=== PATIENT | male | born 1985 | race Caucasian/White ===

== ENCOUNTER 2018-05-12 04:26 | Emergency (ER) | payer BC ==
[~2018-05-12 04:26] MED LIST: FEXO-67 PO; FLUT16SP19 NS; NO ROUTINE MEDS; PANT40TA65 PO
--- NOTE | 2018-05-12 04:31 | ER Report ---
History and Physical Time Seen By MD: 04:30 HPI/ROS CHIEF COMPLAINT: Crampy epigastric pain HISTORY OF PRESENT ILLNESS: 32-year-old male presents ambulatory to the ER complaining of sharp epigastric pain. Patient was having some stomach issues and has been followed by Dr. Forrest mcarthur. He was on PPI to reduce his stomach acid. His symptoms improved but never completely resolved. He's been struggling with sinus congestion, enlarged tonsils with sore throat and some dysphagia for several weeks. Dr. Clayton suggested endoscopy and may be ENT consultation. Patient's been on non-drowsy antihistamine and Nasonex with improvement of his symptoms. He's been off his PPI for one week. REVIEW OF SYSTEMS: Respiratory: No cough, no dyspnea. Cardiovascular: No chest pain, no palpitations. Gastrointestinal: As above Musculoskeletal: No back pain. Allergies: Coded Allergies: No Known Drug Allergies (Unverified , 05/12/18) Home Meds Active Scripts Cefuroxime Axetil (CEFUROXIME) 500 Mg Tablet, 500 MG PO BID for infection, #20 TAB Prov:AR PALACIOS DO 05/12/18 Fexofenadine Hcl (MIGEL ALLERGY) 180 Mg Tablet, 180 MG PO QDAY Y for allergies , #30 TAB Prov:SAÚL CLAYTON MD 05/04/18 Fluticasone Prop 50 Mcg Ns (FLONASE 50 MCG NS) 16 Gm [place].susp, 2 SPRAYS NS QDAY, #1 BOT 3 Refills Prov:SAÚL CLAYTON MD 05/04/18 Discontinued Reported Medications [No Routine Meds] No Conflict Check 04/17/14 Past Medical/Surgical History GERD, allergic rhinitis Reviewed Nurses Notes: Yes Old Medical Records Reviewed: Yes Hx Smoking: No Smoking Status: Never Smoker Constitutional Vital Sign - Last 24 Hours 05/12/18 05/12/18 05/12/18 05/12/18 04:30 04:41 04:56 05:00 Pulse 94 87 76 Resp 16 B/P (MAP) 153/96 138/96 (110) Pulse Ox 98 98 O2 Delivery Room Air 05/12/18 05/12/18 05:26 05:30 Pulse 75 B/P (MAP) 127/84 (98) Physical Exam General Appearance: The patient is alert, has no immediate need for airway protection and no current signs of toxicity.. Vital signs stable, afebrile, pulse ox normal HEENT: Pupils equal and round no injection. TMs normal, oropharynx with moderate erythema, mild tonsillar hypertrophy, no exudate Respiratory: Chest is non tender, lungs are clear to auscultation. Cardiac: regular rate and rhythm Gastrointestinal: Abdomen is soft and non tender, no masses, bowel sounds normal. Musculoskeletal: Neck: Neck is supple and non tender., Anterior cervical chain lymphadenopathy on the right Extremities have full range of motion and are non tender. Skin: No rashes or lesions. DIFFERENTIAL DIAGNOSIS: After history and physical exam differential diagnosis was considered for abdominal pain including but not limited to appendicitis, cholecystitis, gastritis and urinary tract infection. Medical Decision Making Data Points Result Diagram: 05/12/18 0433 05/12/18 0433 Laboratory Hematology Test 05/12/18 04:33 05/12/18 05:10 Red Blood Count 5.60 M/uL (4.00-5.60) Mean Corpuscular Volume 88.8 fL (80.0-96.0) Mean Corpuscular Hemoglobin 31.7 pg (26.0-33.0) Mean Corpuscular Hemoglobin Concent 35.7 g/dL (32.0-36.0) Red Cell Distribution Width 12.6 % (11.5-14.5) Mean Platelet Volume 8.2 fL (7.2-11.1) Neutrophils (%) (Auto) 51.8 % (39.4-72.5) Lymphocytes (%) (Auto) 38.9 % (17.6-49.6) Monocytes (%) (Auto) 7.2 % (4.1-12.4) Eosinophils (%) (Auto) 1.1 % (0.4-6.7) Basophils (%) (Auto) 1.0 % (0.3-1.4) Nucleated RBC Relative Count (auto) 0.1 /100WBC Neutrophils # (Auto) 4.4 K/uL (2.0-7.4) Lymphocytes # (Auto) 3.3 K/uL (1.3-3.6) Monocytes # (Auto) 0.6 K/uL (0.3-1.0) Eosinophils # (Auto) 0.1 K/uL (0.0-0.5) Basophils # (Auto) 0.1 K/uL (0.0-0.1) Nucleated RBC Absolute Count (auto) 0.01 K/uL Sodium Level 141 mmol/L (137-145) Potassium Level 3.2 mmol/L (3.5-5.0) Chloride Level 100 mmol/L (98-107) Carbon Dioxide Level 25 mmol/L (22-30) Blood Urea Nitrogen 9 mg/dl (9-21) Creatinine 0.80 mg/dl (0.66-1.25) Glomerular Filtration Rate Calc > 60.0 Random Glucose 93 mg/dl (75-110) Calcium Level 9.5 mg/dl (8.4-10.2) Total Bilirubin 1.1 mg/dl (0.2-1.3) Aspartate Amino Transf (AST/SGOT) 28 U/L (0-35) Alanine Aminotransferase (ALT/SGPT) 26 U/L (0-56) Alkaline Phosphatase 102 U/L (0-126) Total Protein 8.4 g/dl (6.3-8.2) Albumin 4.8 g/dl (3.5-5.0) Amylase Level 98 U/L (0-110) Lipase 181 U/L (23-300) Urine Color Straw Urine Clarity Clear Urine pH 5.0 pH (4.8-9.5) Urine Specific [place] 1.006 Urine Protein Negative mg/dL (NEGATIVE) Urine Glucose (UA) Negative mg/dL (NEGATIVE) Urine Ketones 20 mg/dL (NEGATIVE) Urine Blood Negative (NEGATIVE) Urine Nitrite Negative (NEGATIVE) Urine Bilirubin Negative (NEGATIVE) Urine Urobilinogen Negative mg/dL (0.2-1.9) Urine Leukocyte Esterase Negative (NEGATIVE) Urine RBC None /HPF (0-2/HPF) Urine WBC <1 /HPF (0-5/HPF) Urine Squamous Epithelial Cells None /LPF (</=FEW) Urine Bacteria Negative /HPF (NONE-FEW) Urine Mucus None /HPF (NONE-FEW) Chemistry Test 05/12/18 04:33 05/12/18 05:10 White Blood Count 8.5 k/uL (4.5-11.0) Red Blood Count 5.60 M/uL (4.00-5.60) Hemoglobin 17.7 g/dL (14.0-18.0) Hematocrit 49.7 % (42.0-52.0) Mean Corpuscular Volume 88.8 fL (80.0-96.0) Mean Corpuscular Hemoglobin 31.7 pg (26.0-33.0) Mean Corpuscular Hemoglobin Concent 35.7 g/dL (32.0-36.0) Red Cell Distribution Width 12.6 % (11.5-14.5) Platelet Count 224 K/uL (150-450) Mean Platelet Volume 8.2 fL (7.2-11.1) Neutrophils (%) (Auto) 51.8 % (39.4-72.5) Lymphocytes (%) (Auto) 38.9 % (17.6-49.6) Monocytes (%) (Auto) 7.2 % (4.1-12.4) Eosinophils (%) (Auto) 1.1 % (0.4-6.7) Basophils (%) (Auto) 1.0 % (0.3-1.4) Nucleated RBC Relative Count (auto) 0.1 /100WBC Neutrophils # (Auto) 4.4 K/uL (2.0-7.4) Lymphocytes # (Auto) 3.3 K/uL (1.3-3.6) Monocytes # (Auto) 0.6 K/uL (0.3-1.0) Eosinophils # (Auto) 0.1 K/uL (0.0-0.5) Basophils # (Auto) 0.1 K/uL (0.0-0.1) Nucleated RBC Absolute Count (auto) 0.01 K/uL Glomerular Filtration Rate Calc > 60.0 Calcium Level 9.5 mg/dl (8.4-10.2) Total Bilirubin 1.1 mg/dl (0.2-1.3) Aspartate Amino Transf (AST/SGOT) 28 U/L (0-35) Alanine Aminotransferase (ALT/SGPT) 26 U/L (0-56) Alkaline Phosphatase 102 U/L (0-126) Total Protein 8.4 g/dl (6.3-8.2) Albumin 4.8 g/dl (3.5-5.0) Amylase Level 98 U/L (0-110) Lipase 181 U/L (23-300) Urine Color Straw Urine Clarity Clear Urine pH 5.0 pH (4.8-9.5) Urine Specific [place] 1.006 Urine Protein Negative mg/dL (NEGATIVE) Urine Glucose (UA) Negative mg/dL (NEGATIVE) Urine Ketones 20 mg/dL (NEGATIVE) Urine Blood Negative (NEGATIVE) Urine Nitrite Negative (NEGATIVE) Urine Bilirubin Negative (NEGATIVE) Urine Urobilinogen Negative mg/dL (0.2-1.9) Urine Leukocyte Esterase Negative (NEGATIVE) Urine RBC None /HPF (0-2/HPF) Urine WBC <1 /HPF (0-5/HPF) Urine Squamous Epithelial Cells None /LPF (</=FEW) Urine Bacteria Negative /HPF (NONE-FEW) Urine Mucus None /HPF (NONE-FEW) Urinalysis Test 05/12/18 05:10 Urine Color Straw Urine Clarity Clear Urine pH 5.0 pH (4.8-9.5) Urine Specific [place] 1.006 Urine Protein Negative mg/dL (NEGATIVE) Urine Glucose (UA) Negative mg/dL (NEGATIVE) Urine Ketones 20 mg/dL (NEGATIVE) Urine Blood Negative (NEGATIVE) Urine Nitrite Negative (NEGATIVE) Urine Bilirubin Negative (NEGATIVE) Urine Urobilinogen Negative mg/dL (0.2-1.9) Urine Leukocyte Esterase Negative (NEGATIVE) Urine RBC None /HPF (0-2/HPF) Urine WBC <1 /HPF (0-5/HPF) Urine Squamous Epithelial Cells None /LPF (</=FEW) Urine Bacteria Negative /HPF (NONE-FEW) Urine Mucus None /HPF (NONE-FEW) ED Course/Re-evaluation Clinical Indication for ER IV: IV Access ED Course Patient was admitted to an examination room. H&P was done. The dental diagnoses was considered. Patient was sharp, crampy epigastric pain. He's had mild increase in his GERD symptoms. I do not think is related to GERD. I think he has a sinus infection with postnasal drip. It's irritating his stomach and esophagus. He'll be treated with a course of antibiotics. He is advised to follow-up with Dr. Shyam Mera ENT. As well as Dr. Clayton. He may need endoscopy or barium swallow for further evaluation. He is having some dysphagia symptoms. He is advised to resume his proton pump inhibitor. He's also advised Mucinex D to decongest his sinuses and help drainage. Decision to Disposition Date: May 12, 2018 Decision to Disposition Time: 05:04 Depart Departure Latest Vital Signs Vital Signs Date Time Temp Pulse Resp B/P (MAP) Pulse Ox O2 Delivery O2 Flow Rate FiO2 05/12/18 05:30 127/84 (98) 05/12/18 05:26 75 05/12/18 04:56 98 05/12/18 04:30 16 Room Air Impression: Primary Impression: Epigastric pain Additional Impressions: GERD (gastroesophageal reflux disease) Allergic rhinitis Sinusitis Hypokalemia Condition: Improved Referrals: SAÚL CLAYTON MD (PCP) SHYAM MERA JR, MD New Scripts Cefuroxime Axetil (CEFUROXIME) 500 Mg Tablet 500 MG PO BID for infection, #20 TAB Prov: AR PALACIOS DO 05/12/18 Patient Instructions: Sinusitis (ED) Additional Instructions: Use Mucinex D to help drain your sinuses Follow-up with your primary care Dr Clayton and Dr. Shyam Mera ENT Problem Qualifiers Additional Impressions: GERD (gastroesophageal reflux disease) Esophagitis presence: esophagitis presence not specified Qualified Codes: K21.9 - Gastro-esophageal reflux disease without esophagitis Allergic rhinitis Allergic rhinitis trigger: unspecified Allergic rhinitis seasonality: unspecified seasonality Qualified Codes: J30.9 - Allergic rhinitis, unspecified Sinusitis Sinusitis location: unspecified location Chronicity: acute Recurrence: not specified as recurrent Qualified Codes: J01.90 - Acute sinusitis, unspecified AR PALACIOS DO May 12, 2018 04:31
[2018-05-12 04:59] LABS: PLATELET COUNT, AUTOMATED 224 K/uL (150-450)
[2018-05-12 05:30] VITALS: BP 127/84
[2018-05-12] MEDS ORDERED: CEFU500T10 PO (05:34)
== END 2018-05-12 05:43 | disposition home or self-care (01) ==
LOC: ER 04:35
DX: J01.90 Acute sinusitis, unspecified (principal); J30.9 Allergic rhinitis, unspecified; K21.9 Gastro-esophageal reflux disease without esophagitis; E87.6 Hypokalemia
CPT/HCPCS: 81001; 82040; 82150; 82247; 82310; 82374; 82435; 82565; 82947; 83690; 84075; 84132; 84155; 84295; 84450; 84460; 84520; 85025; 99282

== ENCOUNTER → 2018-05-26 | Outpatient (CLI) | payer BC ==
[~2018-05-26] MED LIST changes: +CEFU500T10 PO
--- NOTE | 2018-05-26 09:22 | RADIOLOGY IMAGING REPORT ---
FACILITY: [facility] PATIENT NAME: Hamzah Quezada : 1985 MR: [id number] V: [id number] EXAM DATE: ORDERING PHYSICIAN: SAÚL WALTERS TECHNOLOGIST: Location: [facility] - [place] Patient: Hamzah Quezada : 1985 Visit/Account:[id number] Date of Sevice: 05/26/2018 EXAMINATION: Abdominal ultrasound complete History: Epigastric pain COMPARISON STUDIES: Correlation made with CT scan 02/08/2014 FINDINGS: Gallbladder: Gallbladder is normal. There is no cholelithiasis or pericholecystic fluid. Gallbladde r wall thickness is normal. No sonographic Kay sign is present. Liver: Liver is normal. There is no mass or intrahepatic ductal dilatation. Portal vein is patent. Surface of the liver is smooth Common duct: normal 3 mm. Pancreas: Normal Spleen: 10 cm in craniocaudal dimension, within normal limits. Incidental note made of a tiny spleni c cyst measuring 8 mm. Kidneys: Right kidney measures 9.8 x 4.2 x 4.9 cm. Left kidney measures 9.8 x 4.7 x 3.8 cm. Cortica l thickness and echogenicity is normal bilaterally.. Upper abdominal aorta and IVC: negative Ascites: none IMPRESSION: Normal abdominal ultrasound. Report Dictated By: Ailyn Ricci MD at 05/26/2018 9:14 AM Report E-Signed By: Ailyn Ricci MD at 05/26/2018 9:18 AM WSN:[email or web address]
== END ==
LOC: US 01:47
PROVIDERS: ATTEND Internal Medicine
DX: R10.13 Epigastric pain (principal)
CPT/HCPCS: 76700

== ENCOUNTER 2018-06-23 03:11 | Day surgery (SDC) | payer BC ==
[~2018-06-23] VITALS: Ht 177.8 cm; Wt 62.6 kg
[2018-06-23] MEDS ORDERED: PROPOFOL EMUL(*) 10MG/ML 20 ML 20 ML ONE ×2 (07:07→09:39)
[2018-06-23 07:43] VITALS: BP 159/98
[2018-06-23] MEDS ORDERED: LIDOCAINE/SOD BICARB 8.4% SYR ID ONE (07:50)
[2018-06-23] MEDS ORDERED: NORMOSOL R SOLN(*) 1000 ML BAG 1,000 ML IV PRN (07:50)
[2018-06-23 09:48] VITALS: BP 118/72
--- NOTE | 2018-06-23 09:58 | Short(Outpt) Discharge Summary ---
Discharge Summary Reason for Hosp/Final Diag: (1) GERD (gastroesophageal reflux disease) Status: Chronic Hospital Course & Plan: EGD completed without problems, normal. (2) Epigastric pain Status: Chronic Departure Discharge to: Home, Self Care Discharge Instructions Home Meds Active Scripts Pantoprazole Sodium (PANTOPRAZOLE SODIUM) 40 Mg Tablet.dr, 40 MG PO QDAY, #30 TAB.SR 6 Refills Prov:SAÚL WALTERS MD 05/17/18 Fluticasone Prop 50 Mcg Ns (FLONASE 50 MCG NS) 16 Gm [place].susp, 2 SPRAYS NS QDAY, #1 BOT 3 Refills Prov:SAÚL WALTERS MD 05/04/18 Discontinued Scripts Fexofenadine Hcl (MIGEL ALLERGY) 180 Mg Tablet, 180 MG PO QDAY Y for allergies , #30 TAB Prov:SAÚL WALTERS MD 05/04/18 Diet: Regular Activity: As Tolerated Special Instructions: Your upper endoscopy was completed without any problems and it was completely normal. No inflammation or ulcers. I recommend that you continue taking the pantoprazole, 1 pill every morning, and you can use ranitidine (zantac) which is over the counter as needed for break through symptoms. If after 6 months of treatment, you are feeling good, you can come down on the pantoprazole to 1 pill every other day for 1 week and then stop it. You can call my office at [phone] if you continue to have problems and I will be happy to see you again if you need further help. Problem Qualifiers (1) GERD (gastroesophageal reflux disease): Esophagitis presence: without esophagitis Qualified Codes: K21.9 - Gastro- esophageal reflux disease without esophagitis KARINA ELIZABETH MD Jun 23, 2018 09:58
[2018-06-23 10:00] VITALS: BP 128/85
[2018-06-23 10:15] VITALS: BP 124/84
[2018-06-23 10:22] VITALS: BP 125/84
[2018-06-23 10:24] VITALS: BP 112/81
== END 2018-06-23 10:45 | disposition home or self-care (01) ==
LOC: OR 03:11
PROVIDERS: ATTEND Surgery
DX: K21.9 Gastro-esophageal reflux disease without esophagitis (principal)
CPT/HCPCS: 43235; J2704

== ENCOUNTER → 2019-01-11 | Outpatient (CLI) | payer BC ==
[~2019-01-11] MED LIST changes: +MONT10TA PO
[2019-01-11 16:44] LABS: PLATELET COUNT, AUTOMATED 213 K/uL (150-450)
== END ==
LOC: LAB 16:19
PROVIDERS: ATTEND Internal Medicine
DX: R10.11 Right upper quadrant pain (principal); K21.9 Gastro-esophageal reflux disease without esophagitis
CPT/HCPCS: 36415; 81001; 82040; 82150; 82247; 82310; 82374; 82435; 82565; 82947; 83690; 84075; 84132; 84155; 84295; 84443; 84450; 84460; 84520; 85025

== ENCOUNTER → 2019-01-14 | Outpatient (CLI) | payer BC ==
[~2019-01-14] MED LIST changes: +SINCALIDE 5 MCG VIAL INJ ONE; +WATER FOR INJ,STERILE 20 ML 20 ML ONE
--- NOTE | 2019-01-14 09:35 | RADIOLOGY IMAGING REPORT ---
FACILITY: [facility] [place] PATIENT NAME: Hamzah Quezada : 1985 MR: [id number] V: [id number] EXAM DATE: ORDERING PHYSICIAN: SAÚL WALTERS TECHNOLOGIST: Location: [facility] - [place] Patient: Hamzah Quezada : 1985 Visit/Account:[id number] Date of Sevice: 01/14/2019 NM HIDA SCAN HISTORY: Right upper quadrant pain TECHNIQUE: 6.1 mCi Tc99m Hepatolite was injected intravenously. Multiple sequential gamma camera tonya ges of the abdomen were obtained for 15 minutes. At that time, Kinevac was injected intravenously and an additional 30 minutes of gamma camera imaging data was acquired. A computer-generated region of i nterest was placed around the gallbladder and time-activity curve for the gallbladder was derived. Th e gallbladder ejection fraction was calculated. COMPARISON: Abdomen ultrasound May 26, 2018 FINDINGS: Liver uptake and excretion: Unremarkable. Time to appearance: Bile ducts: 3 minutes. Gallbladder: 6 minutes. Duodenum: 4 minutes. Duodenal-gastric reflux / extravasation: None. Post IV Kinevac: Normal and prompt contraction of the gallbladder. Patient symptoms: The CCK injection created some abdominal pain and nausea Ejection fraction = 55% (normal range >35%). IMPRESSION: Gallbladder ejection fraction 55% Report Dictated By: Dionna Menezes MD at 01/14/2019 9:28 AM Report E-Signed By: Dionna Menezes MD at 01/14/2019 9:31 AM WSN:[email or web address]
== END ==
LOC: NUC 04:24
PROVIDERS: ATTEND Internal Medicine
DX: K21.9 Gastro-esophageal reflux disease without esophagitis (principal); R10.11 Right upper quadrant pain
CPT/HCPCS: 78226; A9537; J2805

== ENCOUNTER → 2019-01-31 | Outpatient (CLI) | payer BC ==
[~2019-01-31] MED LIST changes: +IOPAMIDOL 76% 100 ML INFUS BTL 100 ML ONE; -SINCALIDE 5 MCG VIAL INJ ONE; -WATER FOR INJ,STERILE 20 ML 20 ML ONE
--- NOTE | 2019-01-31 14:56 | RADIOLOGY IMAGING REPORT ---
FACILITY: [facility] PATIENT NAME: Hamzah Quezada : 1985 MR: [id number] V: [id number] EXAM DATE: ORDERING PHYSICIAN: KARINA ELIZABETH TECHNOLOGIST: [place] [facility] [place]: Hamzah Quezada : 1985 Visit/Account:[id number] Date of Sevice: 01/31/2019 CT ABDOMEN WITH AND WITHOUT CONTRAST CLINICAL INFORMATION: Epigastric pain x1 week on the right side TECHNIQUE: Axial CT images were obtained through the abdomen before and after injection of nonionic iodinated intravenous contrast. Reformatted coronal and sagittal images were also obtained. Pre cont rast and delayed images were obtained. Dose Lowering Technique One of the following dose optimization techniques was utilized in the performance of this exam: Autom ated exposure control; adjustment of the mA and/or kV according to the patient's size; or use of an i terative reconstruction technique. Specific details can be referenced in the facility's radiology C T exam operational policy. CONTRAST: 75ml of IV CT abdomen and pelvis February 08, 2014 contrast. COMPARISON: none. FINDINGS: Lower lung humphreys: Small amount of scarring in the right lung base and multiple pleural plaques some of which are calcified appears slightly more prominent when compared to the prior study Liver: No focal parenchymal abnormality of the liver. Biliary: Gallbladder appears unremarkable as well as the intra and extra hepatic biliary system. Pancreas: Normal appearance. Spleen: There is a small subcentimeter hypodensity inferior tip of the spleen statistically may repre sent a small cyst or hemangioma Adrenal glands: Unremarkable. Kidneys / retroperitoneum: No evidence of nephrolithiasis or hydronephrosis Bowel / peritoneum / mesenteries: There is a moderate amount of fecal material seen throughout colon which can be seen with constipation Vessels: No significant atherosclerotic calcification seen throughout a nonaneurysmal abdominal aorta and branches. Musculoskeletal / Body wall: There is bilateral sacralization of L5 with a small rudimentary disc spa ce at L5-S1. There is a small umbilical hernia containing fat Lymph node assessment: No pathologic adenopathy identified. IMPRESSION: 1. Is a small amount scarring the right lung base and multiple pleural plaques on the right some of which appear to be calcified. These are slightly more prominent when compared the prior study. The unilateral nature suggests prior trauma as the etiology however clinical correlation suggested Moderate amount of fecal material throughout colon which can be seen with constipation Additional chronic findings as described 2. 3. Report Dictated By: Dionna Menezes MD at 01/31/2019 2:40 PM Report E-Signed By: Dionna Menezes MD at 01/31/2019 2:51 PM WSN:[email or web address]
== END ==
LOC: CT 01:23
PROVIDERS: ATTEND Surgery
DX: R10.13 Epigastric pain (principal)
CPT/HCPCS: 74170; Q9967